=== PATIENT | female | born 1980 | race American Indian/Alaskan Native ===

== ENCOUNTER 2016-08-30 08:31 | Emergency (ER) | payer MEDICAID ==
[2016-08-30 08:43] VITALS: BP 130/89
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
== END 2016-08-30 09:44 | disposition home or self-care (01) ==
LOC: ED 08:31
DX: Z48.02 Encounter for removal of sutures (principal); F32.9 Major depressive disorder, single episode, unspecified; F17.200 Nicotine dependence, unspecified, uncomplicated